=== PATIENT | female | born 1990 | race Caucasian/White ===

== ENCOUNTER 2017-09-06 21:17 | Emergency (ER) | payer SELFPAY ==
[~2017-09-06] VITALS: Ht 152.4 cm; Wt 68.0 kg
[2017-09-06 21:25] VITALS: Ht 152.4 cm; Wt 68.0 kg
[2017-09-06 23:11] VITALS: BP 107/71
== END 2017-09-06 23:11 | disposition home or self-care (01) ==
LOC: ED 21:17
DX: S13.9XXA Sprain of joints and ligaments of unspecified parts of neck, initial encounter (principal); S20.229A Contusion of unspecified back wall of thorax, initial encounter; S09.90XA Unspecified injury of head, initial encounter; W01.0XXA Fall on same level from slipping, tripping and stumbling without subsequent striking against object, initial encounter; Y93.89 Activity, other specified; Y92.511 Restaurant or cafe as the place of occurrence of the external cause; Y99.8 Other external cause status
CPT/HCPCS: 72072; Q0162